=== PATIENT | male | born 1975 ===

== ENCOUNTER 2017-05-18 07:13 | Outpatient (CLI) | payer OTHER ==
[~2017-05-18 07:13] MED LIST: ASA-EC81 MG; CATAFLAM50 MG PO; FLEXERIL10 MG PO; FLONASE16 GM NS; NAPROXEN500 MG PO; SINGULAIR10 MG; TRICOR145 MG; TRICOR145 MG PO; TRIPLE ANTIBIOT15 GM TP; ZITHROMAX TRI-500 MG PO
== END 2017-05-18 07:23 | disposition home or self-care (01) ==
LOC: LAB 07:13
DX: D64.9 Anemia, unspecified (principal); Z12.5 Encounter for screening for malignant neoplasm of prostate; E11.8 Type 2 diabetes mellitus with unspecified complications; E78.00 Pure hypercholesterolemia, unspecified; I10 Essential (primary) hypertension; E03.9 Hypothyroidism, unspecified; E55.9 Vitamin D deficiency, unspecified; E29.1 Testicular hypofunction

== ENCOUNTER 2017-10-03 17:05 | Emergency (ER) | payer OTHER ==
[~2017-10-03] VITALS: Ht 175.3 cm; Wt 89.8 kg
== END 2017-10-03 21:31 | disposition home or self-care (01) ==
LOC: ER 17:05
DX: M54.89 Other dorsalgia (principal)

== ENCOUNTER 2017-10-04 12:51 | Outpatient (CLI) | payer OTHER | END 2017-10-04 13:09 | disposition home or self-care (01) | LOC: RAD 12:51 | DX: M79.671 Pain in right foot (principal); M79.672 Pain in left foot ==

== ENCOUNTER → 2017-11-17 06:40 | Outpatient (CLI) | payer OTHER | END | disposition home or self-care (01) | LOC: LAB 06:40 | DX: E78.2 Mixed hyperlipidemia (principal); E34.8 Other specified endocrine disorders; E22.1 Hyperprolactinemia; Z13.1 Encounter for screening for diabetes mellitus; Z12.11 Encounter for screening for malignant neoplasm of colon; N40.0 Benign prostatic hyperplasia without lower urinary tract symptoms ==

== ENCOUNTER 2018-01-25 07:32 | Outpatient (CLI) | payer OTHER | END 2018-01-25 07:40 | disposition home or self-care (01) | LOC: LAB 07:32 | DX: E29.1 Testicular hypofunction (principal); I11.9 Hypertensive heart disease without heart failure; I10 Essential (primary) hypertension; R94.5 Abnormal results of liver function studies ==

== ENCOUNTER 2018-01-25 08:39 | Outpatient (CLI) | payer OTHER | END 2018-01-25 08:42 | disposition home or self-care (01) | LOC: SONOGRAMA 08:39 | DX: K76.0 Fatty (change of) liver, not elsewhere classified (principal) ==

== ENCOUNTER 2018-01-25 09:53 | Outpatient (CLI) | payer OTHER | END 2018-01-25 09:58 | disposition home or self-care (01) | LOC: MRI 09:53 | DX: E22.1 Hyperprolactinemia (principal) | CPT/HCPCS: 70553 ==

== ENCOUNTER → 2018-08-10 06:44 | Outpatient (CLI) | payer OTHER | END | disposition home or self-care (01) | LOC: LAB 06:44 | DX: E78.49 Other hyperlipidemia (principal); Z00.00 Encounter for general adult medical examination without abnormal findings; R42 Dizziness and giddiness; R86.1 Abnormal level of hormones in specimens from male genital organs ==

== ENCOUNTER 2018-08-17 20:57 | Emergency (ER) | payer OTHER ==
[~2018-08-17] VITALS: Ht 175.3 cm; Wt 85.7 kg
== END 2018-08-17 23:45 | disposition home or self-care (01) ==
LOC: ER 20:57
DX: S13.4XXA Sprain of ligaments of cervical spine, initial encounter (principal); V49.9XXA Car occupant (driver) (passenger) injured in unspecified traffic accident, initial encounter; Y93.89 Activity, other specified; Y92.488 Other paved roadways as the place of occurrence of the external cause; Y99.8 Other external cause status

== ENCOUNTER 2018-10-24 20:35 | Emergency (ER) | payer OTHER ==
[~2018-10-24] VITALS: Ht 177.8 cm; Wt 90.7 kg
[2018-10-25] MEDS ORDERED: LEVSIN/SL0.125 MG SL (03:21)
[2018-10-25] MEDS ORDERED: MIRALAX510 GM PO (03:23)
== END 2018-10-25 03:26 ==
LOC: ER 20:35
DX: K59.09 Other constipation (principal); R10.84 Generalized abdominal pain

== ENCOUNTER 2019-05-01 06:49 | Outpatient (CLI) | payer OTHER ==
[~2019-05-01 06:49] MED LIST changes: +LEVSIN/SL0.125 MG SL; +MIRALAX510 GM PO
== END 2019-05-01 06:55 | disposition home or self-care (01) ==
LOC: LAB 06:49
DX: E78.49 Other hyperlipidemia (principal); Z00.00 Encounter for general adult medical examination without abnormal findings; E55.9 Vitamin D deficiency, unspecified; N41.0 Acute prostatitis; R42 Dizziness and giddiness; E23.1 Drug-induced hypopituitarism

== ENCOUNTER 2019-09-08 07:42 | Outpatient (CLI) | payer OTHER | END 2019-09-08 15:00 | disposition home or self-care (01) | LOC: LAB 07:42 | PROVIDERS: ATTEND Family Medicine | DX: N39.0 Urinary tract infection, site not specified (principal); E78.00 Pure hypercholesterolemia, unspecified; N40.0 Benign prostatic hyperplasia without lower urinary tract symptoms ==

== ENCOUNTER 2019-11-15 | Outpatient (CLI) | payer OTHER | END 2019-11-15 00:01 | disposition home or self-care (01) | LOC: PPH VACUNA | DX: Z23 Encounter for immunization (principal) | CPT/HCPCS: 90688; G0008 ==

== ENCOUNTER 2019-11-27 07:08 | Outpatient (CLI) | payer OTHER | END 2019-11-27 09:05 | disposition home or self-care (01) | LOC: TOM 07:08 | PROVIDERS: ATTEND Internal Medicine Sports Medicine | DX: K11.8 Other diseases of salivary glands (principal) | CPT/HCPCS: 70491; Q9965 ==

== ENCOUNTER → 2019-12-03 08:57 | Outpatient (CLI) | payer OTHER | END | disposition home or self-care (01) | LOC: LAB 08:57 | PROVIDERS: ATTEND Internal Medicine Sports Medicine | DX: D64.89 Other specified anemias (principal); E11.8 Type 2 diabetes mellitus with unspecified complications; E78.00 Pure hypercholesterolemia, unspecified; I10 Essential (primary) hypertension; E03.8 Other specified hypothyroidism; E55.9 Vitamin D deficiency, unspecified; N40.1 Benign prostatic hyperplasia with lower urinary tract symptoms ==

== ENCOUNTER → 2019-12-20 07:23 | Outpatient (CLI) | payer OTHER | END | disposition home or self-care (01) | LOC: LAB 07:23 | PROVIDERS: ATTEND Otolaryngology | DX: Z00.00 Encounter for general adult medical examination without abnormal findings (principal) ==

== ENCOUNTER → 2020-02-11 | Outpatient (CLI) | payer OTHER | END | disposition home or self-care (01) | LOC: OFIC 805 09:15 | PROVIDERS: ATTEND Otolaryngology | DX: H02.842 Edema of right lower eyelid (principal) ==

== ENCOUNTER → 2020-11-27 11:00 | Outpatient (CLI) | payer OTHER | END | disposition home or self-care (01) | LOC: PPH VACUNA 11:00 | PROVIDERS: ATTEND Emergency Medicine Pediatric Emergency Medicine | DX: Z23 Encounter for immunization (principal) ==

== ENCOUNTER 2021-03-06 09:00 | Outpatient (CLI) | payer OTHER | END 2021-03-06 09:15 | disposition home or self-care (01) | LOC: PPH VACUNA 09:00 | PROVIDERS: ATTEND Emergency Medicine Pediatric Emergency Medicine | DX: Z23 Encounter for immunization (principal) ==

== ENCOUNTER 2021-10-21 09:21 | Outpatient (CLI) | payer OTHER | END 2021-10-21 09:26 | disposition home or self-care (01) | LOC: PPH VACUNA 09:21 | PROVIDERS: ATTEND Emergency Medicine Pediatric Emergency Medicine | DX: Z23 Encounter for immunization (principal) ==